=== PATIENT | female | born 1955 | race Caucasian/White ===

== ENCOUNTER → 2016-09-13 | Outpatient (CLI) | payer OTHER ==
--- NOTE | 2016-09-13 13:16 | MM ---
Reason for exam: screening (asymptomatic). Baseline mammogram. History: Patient is postmenopausal. Family history of breast cancer in sister at age 60. Physical Findings: Nurse Summary: 1cm nodule in the left breast at 11 o'clock (nurse mm). MG Screening Mammo w CAD Bilateral CC and MLO view(s) were taken. There are scattered fibroglandular densities. Nodule far posteriorly left MLO view likely an axillary tail lymph node. Palpable marker upper inner quadrant left breast. Vague focal asymmetry left upper outer quadrant at a middle depth. These results were verbally communicated with the patient and result sheet given to the patient on 09/13/16. ASSESSMENT: Incomplete: need additional imaging evaluation, BI-RAD 0 RECOMMENDATION: Special view mammogram and ultrasound of the left breast. [facility] will attempt to contact patient to return for supplemental views and ultrasound.
--- NOTE | 2016-09-13 13:17 | MM ---
Reason for exam: additional evaluation requested from abnormal screening. History: Patient is postmenopausal. Family history of breast cancer in sister at age 60. Physical Findings: Breast exam preformed at baseline screening. MG Work Up Mamm w CAD LT Spot compression CC, spot compression MLO, and LM view(s) were taken of the left breast. There are scattered fibroglandular densities. Vague focal asymmetry upper outer quadrant persists. A prominent island of fibroglandular tissue is possible. Ultrasound is recommended. These results were verbally communicated with the patient and result sheet given to the patient on 09/13/16. ASSESSMENT: Incomplete: need additional imaging evaluation, BI-RAD 0 RECOMMENDATION: Ultrasound of the left breast. (upper outer quadrant and palpable)
--- NOTE | 2016-09-13 13:22 | USB ---
Reason for exam: additional evaluation requested from abnormal screening. History: Patient is postmenopausal. Family history of breast cancer in sister at age 60. US Breast Workup Limited LT Left breast ultrasound demonstrates a 0.6 x 0.3 x 0.6cm hyperechoic lesion at 11 o'clock most likely a lipoma, a 0.5 x 0.2 x 0.6cm hyperechoic lesion at 3 o'clock most likely a small lipoma, a 0.5 x 0.2 x 0.6cm lipoma at 3 o'clock and a 0.7 x 0.2 x 0.5cm mixed lesion at 3 o'clock for which a 6 month follow up is recommended, appears slightly low to correspond to the mammographic finding. These results were verbally communicated with the patient and result sheet given to the patient on 09/13/16. ASSESSMENT: Probably benign, BI-RAD 3 RECOMMENDATION: Follow-up diagnostic mammogram and ultrasound of the left breast in 6 months. (3 o'clock)
--- NOTE | 2016-09-13 15:13 | XR ---
EXAMINATION TYPE: XR chest 2V DATE OF EXAM: 09/13/2016 11:52 AM COMPARISON: 02/28/2015 HISTORY: 61 year-old female shortness of breath for a few months, dyspnea TECHNIQUE: Frontal and lateral views FINDINGS: The cardiomediastinal silhouette, aorta, and pulmonary vasculature are within normal limits. Some str sampson atelectasis in the lower lungs. Otherwise, lungs and pleural spaces are clear. IMPRESSION: No acute cardiopulmonary process.
--- NOTE | 2016-09-13 15:18 | XR ---
EXAMINATION TYPE: XR shoulder complete LT DATE OF EXAM: 09/13/2016 11:52 AM COMPARISON: NONE HISTORY: 61-year-old female with shoulder pain TECHNIQUE: 3 views FINDINGS: Moderate degenerative joint space narrowing and marginal spurring at the acromioclavicular joint. Sub acromial space is preserved without tendinous or bursal calcifications. There is some bony sclerosis at greater velocity. No acute fracture or dislocation. Visualized left hemithorax is clear. IMPRESSION: Moderate AC joint osteoarthrosis and changes at the greater tuberosity suggesting chronic rotator cuf f tendinopathy. No acute osseous abnormality seen.
== END | disposition home or self-care (01) ==
LOC: RADMAMWWP 09:36
PROVIDERS: ATTEND Family Medicine
DX: Z12.31 Encounter for screening mammogram for malignant neoplasm of breast (principal); M19.012 Primary osteoarthritis, left shoulder; R06.09 Other forms of dyspnea; R92.8 Other abnormal and inconclusive findings on diagnostic imaging of breast
CPT/HCPCS: 71020; 73030; 76642; G0202; G0206

== ENCOUNTER → 2018-07-10 | Outpatient (CLI) | payer OTHER ==
--- NOTE | 2018-07-10 13:32 | XR ---
EXAMINATION TYPE: XR chest 2V DATE OF EXAM: 07/10/2018 COMPARISON: Prior chest x-ray September 13, 2016. HISTORY: Shortness of breath. TECHNIQUE: Frontal and lateral views of the chest are obtained. FINDINGS: There is no focal air space opacity, pleural effusion, or pneumothorax seen. The cardiac silhouette size is within normal limits. Atherosclerotic change in aortic knob is redemonstrated. T he osseous structures are intact. IMPRESSION: No acute cardiopulmonary process. No significant change from prior.
--- NOTE | 2018-07-10 13:54 | US ---
EXAMINATION TYPE: US duplex aorta DATE OF EXAM: 07/10/2018 COMPARISON: NONE CLINICAL HISTORY: E04.1 thyroid nodule, I71.4 Abdominal aortic aneur. No hx AAA. No HTN. Nonsmoker. EXAM MEASUREMENTS: Abdominal Aorta: Proximal: 1.6 x 1.9 cm Mid: 1.5 x 1.6 cm Distal: 1.0 x 1.2 cm Bifurcation: Right- 0.7 x 0.9 cm Left- 0.5 x 0.8 cm Aorta is seen through bifurcation without aneurysmal change. IMPRESSION: No ultrasound evidence of AAA.
--- NOTE | 2018-07-10 13:55 | US ---
EXAMINATION TYPE: US thyroid st tissue head/neck DATE OF EXAM: 07/10/2018 COMPARISON: Thyroid ultrasound March 31, 2015 CLINICAL HISTORY: E04.1 thyroid nodule, I71.4 Abdominal aortic aneur. Hx of thyroid nodules- no biops y. Not on thyroid meds. GLAND SIZE: Right Lobe: 3.6 x 1.2 x 1.3 cm Overall Parenchyma: heterogenous Left Lobe: 3.8 x 1.0 x 1.3 cm Overall Parenchyma: heterogeneous Isthmus Thickness: 0.2 cm NODULES RIGHT: # of nodules measured on right: 3 Largest measured 1. 0.4 X 0.4 x 0.3 cm hypoechoic nodule at the upper pole with well-defined margins. This nodule i s wider than tall and shows intranodular vascularity. Prior- 0.5 x 0.3 x 0.3 cm 2. 0.5 X 0.6 x 0.3 cm cystic nodule with center focus at the lower pole with well-defined margins. This nodule is wider than tall and shows no intranodular vascularity. Prior- 0.4 x 0.5 x 0.2 cm 3. 1.1 X 0.8 x 0.6 cm cystic nodule with center focus at the lower pole with well-defined margins. This nodule is wider than tall and shows no intranodular vascularity. Prior- 0.7 x 0.6 x 0.5 cm LEFT: # of nodules measured on left: 1 1. 0.8 X 0.4 x 0.7 cm hypoechoic mixed nodule at the upper pole with well-defined margins. This no dule is taller than wide and shows intranodular vascularity. Prior size: 0.5 x 0.5 x 0.5 cm ISTHMUS: # of nodules measured in the isthmus: 0 Bilateral neck scanned, no evidence of lymphadenopathy. There is persistent heterogeneous small size thyroid with scattered small nodules, no significant int erval change, no new nodules are identified. IMPRESSION: Overall stable findings from 2014. No new greater than 1 cm solid or cystic nodules are present.
== END ==
LOC: RADUSWWP 12:33
PROVIDERS: ATTEND Physician Assistant
DX: I71.4 Abdominal aortic aneurysm, without rupture (principal); E04.1 Nontoxic single thyroid nodule; R06.02 Shortness of breath
CPT/HCPCS: 71046; 76536; 93979

== ENCOUNTER → 2019-02-19 | Outpatient (CLI) | payer MEDICARE ==
--- NOTE | 2019-02-19 16:30 | CT ---
EXAMINATION TYPE: CT ChestAbdPelvis w con DATE OF EXAM: 02/19/2019 INDICATION: Cough and abdominal pain. COMPARISON: None CT DLP: 1318 mGycm CONTRAST: Performed with Oral Contrast and with IV Contrast, patient injected with 100ml mL of Isovue 300. TECHNIQUE: Axial images at 5 mm thick sections. Reconstructed images in the coronal plane. Delayed images through the kidneys. FINDINGS: CT CHEST: Portion of the thyroid visualized is normal. No suspicious lung nodules or focal infiltrates are present. No enlarged mediastinal or hilar adenopathy is evident. The ascending aorta diameter at the level of the main pulmonary artery is 2.9 cm. The main pulmonary artery diameter at the bifurcation is 2.[address] ABDOMEN: Liver: There is mild fatty infiltration of the liver. No discrete masses or cysts are evident. Spleen: Normal Pancreas: Normal Adrenal glands: The adrenal glands are normal. Gallbladder: Normal Kidneys: No masses are evident. No hydronephrosis is present. No cysts are present. Delayed images were obtained through the kidneys, which remain unremarkable. Aorta: Vascular calcification is within the aorta. Inferior vena cava: Normal. CT PELVIS: Loops of bowel within the abdomen and pelvis are normal. Multiple diverticuli are present within the colon. No inflammatory changes are adjacent to suggest acute diverticulitis. Appendix: Normal as visualized. Urinary bladder: Decompressed with somewhat limited evaluation. Genitourinary structures: There is a calcified fibroid within the uterine fundus. Adnexal regions deonte ear normal. Osseous structures: No suspicious lytic or sclerotic lesions. Some facet degenerative change within t he lower lumbar spine. IMPRESSIONS: 1. Diverticulosis without acute diverticulitis. 2. Mild fatty infiltration of the liver. 3. Uterine fibroid.
== END | disposition home or self-care (01) ==
LOC: RADCTMAIN 14:11
PROVIDERS: ATTEND Family Medicine
DX: K57.90 Diverticulosis of intestine, part unspecified, without perforation or abscess without bleeding (principal); K76.0 Fatty (change of) liver, not elsewhere classified; D25.9 Leiomyoma of uterus, unspecified; R05 Cough
CPT/HCPCS: 71260; 74177; Q9967 ×2

== ENCOUNTER → 2020-07-11 | Outpatient (CLI) | payer MEDICARE ==
--- NOTE | 2020-07-11 15:30 | XR ---
EXAMINATION TYPE: XR chest 2V DATE OF EXAM: 07/11/2020 COMPARISON: 07/10/2018 HISTORY: 65-year-old female R06.00, dyspnea, shortness of breath. TECHNIQUE: Frontal and lateral views FINDINGS: The cardiomediastinal silhouette, aorta, and pulmonary vasculature are within normal limits. Lungs an d pleural spaces are clear. IMPRESSION: No acute cardiopulmonary process.
== END ==
LOC: RADXRMAIN 14:48
PROVIDERS: ATTEND Nurse Practitioner
DX: R06.02 Shortness of breath (principal)
CPT/HCPCS: 71046

== ENCOUNTER → 2021-12-15 | Outpatient (CLI) | payer MEDICARE ==
--- NOTE | 2021-12-15 10:09 | US ---
EXAMINATION TYPE: US abdomen complete DATE OF EXAM: 12/15/2021 COMPARISON: CT 2019 CLINICAL HISTORY: R94.5 ABNORMAL RESULTS OF LIVER FUNCTION STUDIES. Liver function tests abnormal. TECHNIQUE: Multiple sonographic images of the abdomen are obtained. FINDINGS: EXAM MEASUREMENTS: Liver Length: 15.2 cm Gallbladder Wall: 0.32 cm CBD: 0.44 cm Spleen: 10.2 cm Right Kidney: 10.9 x 4.9 x 4.2 cm Left Kidney: 10.8 x 5.0 x 4.5 cm CLERICAL TRANSCRIBER NOTES: Exam is limited due to overlying bowel gas Pancreas: Limited visibility. Liver: Appears very coarse in echotexture. Increased echogenicity. Gallbladder: Measures 8.3 cm in length and 4.0 cm in width. Wall measures upper limits. Evidence for sonographic Parsons's sign: No CBD: Portions seen appear wnl Spleen: Appears wnl Right Kidney: No hydronephrosis or masses seen Left Kidney: No hydronephrosis or masses seen Upper IVC: Appears wnl Abd Aorta: wnl No aneurysm in the visualized aorta through the bifurcation. Pancreas within normal limits. Visualize d liver heterogeneously hyperechoic. No biliary dilatation. No adjacent ascites. Kidneys remain withi n normal limits. Spleen is normal in size. IMPRESSION: Heterogeneous hyperechoic appearance of liver consistent with diffuse fatty infiltration and/or underlying hepatocellular disease remains present.
== END | disposition home or self-care (01) ==
LOC: RADUSWWP 09:07
PROVIDERS: ATTEND Family Medicine
DX: R94.5 Abnormal results of liver function studies (principal)
CPT/HCPCS: 76700